=== PATIENT | female | born 1960 | race Caucasian/White ===

== ENCOUNTER 2024-06-04 12:00 | Inpatient (IN) | payer OTHER ==
[~2024-06-04] VITALS: Ht 162.6 cm; Wt 63.5 kg
[2024-06-04] MEDS: ALBUTEROL SULFATE 2.5 MG/3 ML NEBU NEB ONE (12:21)
[2024-06-04] MEDS: IPRATROPIUM BROMIDE 0.5 MG/2.5 ML NEBU NEB ONE (12:21)
[2024-06-04] MEDS ORDERED: IPRATROPIUM BROMIDE 0.5 MG/2.5 ML NEBU ONE (12:25)
[2024-06-04] MEDS ORDERED: ALBUTEROL SULFATE 2.5 MG/3 ML NEBU ONE (12:25)
[2024-06-04 12:38] LABS: BASOPHILS % (AUTO) 0.1 % (0.0-2.0); EOSINOPHILS % (AUTO) 0.1 % (0.0-7.0); HEMATOCRIT 33.1 % (31.2-41.9); HEMOGLOBIN 11.4 g/dL (10.9-14.3); LYMPHOCYTES # (AUTO) 1.5 K/uL (0.8-4.8); MEAN CORPUSCULAR HEMOGLOBIN 32.3 uug (24.7-32.8); MEAN CORPUSCULAR HGB CONC 34 g/dL (32.3-35.6); MEAN CORPUSCULAR VOLUME 93.9 fL (75.5-95.3); MONOCYTES # (AUTO) 0.5 K/uL (0.1-1.30); MONOCYTES % (AUTO) 5.1 % (0.0-11.0); NEUTROPHILS # (AUTO) 7.1 K/uL (1.8-8.9); NEUTROPHILS % (AUTO) 77.7 % (38.5-71.5); PLATELET COUNT (AUTO) 204 K/uL (179-408); RED BLOOD CELL COUNT(AUTO) 3.52 MIL/uL (3.63-4.92); RED CELL DISTRIBUTION WIDTH 14.2 % (12.3-17.7); WHITE BLOOD COUNT (AUTO) 9.1 K/uL (3.8-11.8)
[2024-06-04] MEDS: methylPREDNISolone SOD SUCC 125 MG/2 ML VIAL IV ONE (12:47)
[2024-06-04] MEDS ORDERED: methylPREDNISolone SOD SUCC 125 MG/2 ML VIAL ONE (12:48)
[2024-06-04 12:51] LABS: DIFFERENTIAL COMMENT 1
[2024-06-04 12:54] LABS: CALCIUM 8.5 mg/dL (8.5-10.1); CARBON DIOXIDE 24 mmol/L (21-32); CHLORIDE 99 mmol/L (98-107); CREATININE 0.5 mg/dL (0.6-1.3); GLUCOSE 94 mg/dL (74-106); SODIUM SERUM 131 mmol/L (136-145); UREA NITROGEN, BLOOD 12 mg/dL (7-18)
[2024-06-04 12:56] LABS: POTASSIUM 5.2 mmol/L (3.5-5.1)
[2024-06-04 13:08] LABS: ALANINE AMINOTRANSFERASE 29 U/L (14-59); ALBUMIN 2.6 g/dL (3.4-5.0); ALKALINE PHOSPHATASE 53 U/L (50-136); ASPARTATE AMINOTRANSFERASE 51 U/L (15-37); BILIRUBIN,DIRECT 0.1 mg/dL (0.0-0.2); BILIRUBIN,TOTAL 0.6 mg/dL (0.2-1.0); NT-PRO BNP 1483 pg/mL (0-125); TOTAL PROTEIN, SERUM 8.2 g/dL (6.4-8.2)
[2024-06-04] MEDS ORDERED: AZITHROMYCIN 500MG/ D5W 250ML IVPB **ER PYXIS ONLY IV ONE (13:58)
[2024-06-04] MEDS ORDERED: CEFTRIAXONE /D5W 50ML IVPB **ER PYXIS IV ONE (13:58)
[2024-06-04] MEDS: IV NORMAL SALINE 1000 ML BAG IV ONE (14:01)
[2024-06-04] MEDS: CEFTRIAXONE 1 G in IV DEXTROSE 5% 50 ML IV ONE (14:02)
[2024-06-04] MEDS ORDERED: SWABABLE VALVE TRANSFER SET EA MC ONE (14:03)
[2024-06-04] MEDS ORDERED: IOHEXOL 350 100 ML INFUS..BTL ONE (14:03)
[2024-06-04] MEDS ORDERED: IV NORMAL SALINE 250 ML IV ONE (14:03)
[2024-06-04] MEDS ORDERED: ACETAMINOPHEN 325 MG TABLET PO PRN (14:15)
[2024-06-04] MEDS ORDERED: ALBUTEROL SULFATE 8 GM HFA.AER.AD IH PRN (14:15)
[2024-06-04] MEDS ORDERED: ONDANSETRON 4 MG/2 ML VIAL IV PRN (14:15)
[2024-06-04] MEDS: AZITHROMYCIN IV 500 MG in IV DEXTROSE 5% 250 ML IV ONE (15:00)
[2024-06-04] MEDS ORDERED: ALBUTEROL SULFATE 2.5 MG/3 ML NEBU NEB PRN (15:15)
[2024-06-04] MEDS: VANCOMYCIN IV 1,000 MG in IV DEXTROSE 5% 250 ML IV SCH (16:03)
[2024-06-04 16:50] LABS: ABG BASE EXCESS -2.2 mmol/L (-2.0-3.0); ABG HCO3 22.3 mmol/L (21.0-28.0); ABG PCO2 37.4 mmHg (32.0-45.0); ABG PH 7.393 (7.350-7.450); ABG PO2 59.5 mmHg (83.0-108.0); ABG SITE RIGHT RADIAL; ABG TOTAL HEMOGLOBIN 12.1 G/dL (12.0-16.0); AaDO2 90.8 mmHg; COHb 0.7 % (0.5-1.5); O2Hb 88.6 % (94.0-98.0)
[2024-06-04] MEDS: MIDODRINE HCL 5 MG TABLET PO SCH (22:00)
[2024-06-04] MEDS ORDERED: CEFEPIME HCL 1 G VIAL ONE (22:32)
[2024-06-04] MEDS ORDERED: OSELTAMIVIR PHOSPHATE 75 MG CAPSULE ONE (22:32)
[2024-06-04] MEDS ORDERED: HEPARIN SODIUM,PORCINE 5,000 UNITS/ML VIAL ONE (22:32)
[2024-06-04] MEDS ORDERED: MIDODRINE HCL 5 MG TABLET ONE (22:33)
[2024-06-04] MEDS: HEPARIN SODIUM,PORCINE 5,000 UNITS/ML VIAL SQ SCH (22:35)
[2024-06-04] MEDS: OSELTAMIVIR PHOSPHATE 75 MG CAPSULE PO SCH (22:35)
[2024-06-04] MEDS: CEFEPIME HCL 1 G in IV DEXTROSE 5% 50 ML IV SCH (22:52)
[2024-06-05] MEDS ORDERED: CEFEPIME HCL 1 G VIAL ONE ×2 (08:05→22:54)
[2024-06-05 08:18] LABS: HEMATOCRIT 33.7 % (31.2-41.9); HEMOGLOBIN 11.4 g/dL (10.9-14.3); LYMPHOCYTES # (AUTO) 1.1 K/uL (0.8-4.8); LYMPHOCYTES % (AUTO) 16.3 % (20.5-51.5); MEAN CORPUSCULAR HEMOGLOBIN 31.8 uug (24.7-32.8); MEAN CORPUSCULAR HGB CONC 34 g/dL (32.3-35.6); MEAN CORPUSCULAR VOLUME 93.6 fL (75.5-95.3); MONOCYTES # (AUTO) 0.5 K/uL (0.1-1.30); MONOCYTES % (AUTO) 7.8 % (0.0-11.0); NEUTROPHILS # (AUTO) 5.1 K/uL (1.8-8.9); NEUTROPHILS % (AUTO) 75.9 % (38.5-71.5); PLATELET COUNT (AUTO) 214 K/uL (179-408); WHITE BLOOD COUNT (AUTO) 6.7 K/uL (3.8-11.8)
[2024-06-05 08:29] LABS: DIFFERENTIAL COMMENT 1
[2024-06-05 08:40] LABS: ALANINE AMINOTRANSFERASE 32 U/L (14-59); ALBUMIN 2.6 g/dL (3.4-5.0); ALKALINE PHOSPHATASE 58 U/L (50-136); ASPARTATE AMINOTRANSFERASE 25 U/L (15-37); BILIRUBIN,TOTAL 0.5 mg/dL (0.2-1.0); CALCIUM 8.9 mg/dL (8.5-10.1); CARBON DIOXIDE 24 mmol/L (21-32); CHLORIDE 103 mmol/L (98-107); CREATININE 0.4 mg/dL (0.6-1.3); GLUCOSE 153 mg/dL (74-106); PHOSPHOROUS 2.9 mg/dL (2.5-4.9); POTASSIUM 4.3 mmol/L (3.5-5.1); SODIUM SERUM 138 mmol/L (136-145); TOTAL PROTEIN, SERUM 8.2 g/dL (6.4-8.2); UREA NITROGEN, BLOOD 9 mg/dL (7-18)
[2024-06-05] MEDS ORDERED: OSELTAMIVIR PHOSPHATE 75 MG CAPSULE ONE ×2 (08:59→22:53)
[2024-06-05] MEDS ORDERED: HEPARIN SODIUM,PORCINE 5,000 UNITS/ML VIAL ONE (09:00)
[2024-06-05] MEDS: FLUTICASONE/VILANTEROL 1 EACH BLST.W.DEV INH SCH (09:04)
[2024-06-05 09:05] VITALS: O2SAT 96
[2024-06-05] MEDS ORDERED: TRAZ-182 PO (09:23)
[2024-06-05] MEDS ORDERED: ESCI10TA PO (09:23)
[2024-06-05] MEDS ORDERED: ALPR0.5T8 PO (09:23)
[2024-06-05 09:24] LABS: ABG BASE EXCESS -2.2 mmol/L (-2.0-3.0); ABG HCO3 21.4 mmol/L (21.0-28.0); ABG PO2 89.1 mmHg (83.0-108.0); ABG SITE LEFT RADIAL; ABG TOTAL HEMOGLOBIN 12.2 G/dL (12.0-16.0); AaDO2 97.1 mmHg; COHb 0.3 % (0.5-1.5); MetHb 0.3 % (0.0-1.5); O2Hb 95.8 % (94.0-98.0)
[2024-06-05] MEDS ORDERED: PREG100C PO (09:25)
[2024-06-05] MEDS ORDERED: HYDR-3980 PO (09:25)
[2024-06-05] MEDS ORDERED: BACL20TA PO (09:25)
[2024-06-05] MEDS ORDERED: MIDO10TA PO (09:26)
[2024-06-05] MEDS ORDERED: methylPREDNISolone SOD SUCC 40 MG/ML VIAL ONE (13:52)
[2024-06-05] MEDS ORDERED: BACLOFEN 10 MG TABLET ONE (13:53)
[2024-06-05] MEDS ORDERED: MIDODRINE HCL 5 MG TABLET ONE (13:53)
[2024-06-05] MEDS ORDERED: PREGABALIN 100 MG CAPSULE ONE ×2 (13:54→17:02)
[2024-06-05] MEDS: BACLOFEN 20 MG TABLET PO SCH (13:56)
[2024-06-05] MEDS: methylPREDNISolone SOD SUCC 125 MG/2 ML VIAL IV SCH (13:56)
[2024-06-05] MEDS: PREGABALIN 100 MG CAPSULE PO SCH (13:56)
[2024-06-05] MEDS ORDERED: IPRATROPIUM BROMIDE 0.5 MG/2.5 ML NEBU ONE ×2 (15:05→19:54)
[2024-06-05] MEDS ORDERED: ALBUTEROL SULFATE 2.5 MG/3 ML NEBU ONE ×2 (15:05→19:54)
[2024-06-05 15:08] VITALS: O2SAT 97
[2024-06-05] MEDS: IPRATROPIUM BROMIDE 0.5 MG/2.5 ML NEBU NEB SCH (15:08)
[2024-06-05] MEDS: ALBUTEROL SULFATE 2.5 MG/3 ML NEBU NEB SCH (15:08)
[2024-06-05 15:23] VITALS: O2SAT 100
[2024-06-05] MEDS: CEFEPIME HCL 1 G in IV DEXTROSE 5% 50 ML IV SCH (16:05)
[2024-06-05] MEDS ORDERED: MIDODRINE HCL 10 MG PO SCH (17:00)
[2024-06-05 19:40] VITALS: O2SAT 95
[2024-06-05 19:51] VITALS: O2SAT 97
[2024-06-05 19:55] VITALS: O2SAT 97
[2024-06-05] MEDS ORDERED: VANCOMYCIN IV 200 ML ONE ×2 (21:38→22:52)
[2024-06-05] MEDS ORDERED: AZITHROMYCIN 500MG/ D5W 250ML IVPB **ER PYXIS ONLY IV ONE (22:53)
[2024-06-05] MEDS: TRAZODONE 50 MG TABLET PO SCH (23:04)
[2024-06-05] MEDS: ALPRAZOLAM 0.5 MG TABLET PO SCH (23:04)
[2024-06-06] VITALS (13 sets, daily range): BP systolic 97–142; BP diastolic 54–85; TEMP 97.6–98.6; O2SAT 91–99
[2024-06-06 07:04] LABS: BASOPHILS % (AUTO) 0.1 % (0.0-2.0); HEMATOCRIT 34.8 % (31.2-41.9); LYMPHOCYTES # (AUTO) 1.1 K/uL (0.8-4.8); LYMPHOCYTES % (AUTO) 13.8 % (20.5-51.5); MEAN CORPUSCULAR HEMOGLOBIN 31.9 uug (24.7-32.8); MEAN CORPUSCULAR HGB CONC 35 g/dL (32.3-35.6); MEAN CORPUSCULAR VOLUME 92.1 fL (75.5-95.3); MONOCYTES # (AUTO) 0.6 K/uL (0.1-1.30); MONOCYTES % (AUTO) 7.2 % (0.0-11.0); NEUTROPHILS # (AUTO) 6.3 K/uL (1.8-8.9); NEUTROPHILS % (AUTO) 78.9 % (38.5-71.5); PLATELET COUNT (AUTO) 255 K/uL (179-408); RED BLOOD CELL COUNT(AUTO) 3.78 MIL/uL (3.63-4.92); RED CELL DISTRIBUTION WIDTH 13.9 % (12.3-17.7); WHITE BLOOD COUNT (AUTO) 7.9 K/uL (3.8-11.8)
[2024-06-06 07:21] LABS: CALCIUM 9.3 mg/dL (8.5-10.1); CARBON DIOXIDE 26 mmol/L (21-32); CHLORIDE 103 mmol/L (98-107); CREATININE 0.4 mg/dL (0.6-1.3); GLUCOSE 171 mg/dL (74-106); MAGNESIUM 2.8 mg/dL (1.8-2.4); PHOSPHOROUS 2.9 mg/dL (2.5-4.9); POTASSIUM 3.9 mmol/L (3.5-5.1); SODIUM SERUM 140 mmol/L (136-145); UREA NITROGEN, BLOOD 9 mg/dL (7-18)
[2024-06-06 07:52] LABS: DIFFERENTIAL COMMENT 1
[2024-06-06 08:19] LABS: ABG BASE EXCESS 1.6 mmol/L (-2.0-3.0); ABG HCO3 24.3 mmol/L (21.0-28.0); ABG PCO2 32.5 mmHg (32.0-45.0); ABG PH 7.492 (7.350-7.450); ABG PO2 74.9 mmHg (83.0-108.0); ABG SITE RIGHT RADIAL; ABG TOTAL HEMOGLOBIN 12.6 G/dL (12.0-16.0); AaDO2 96.1 mmHg; COHb 0.4 % (0.5-1.5); MetHb 0.3 % (0.0-1.5); O2Hb 94.5 % (94.0-98.0)
[2024-06-06] MEDS: ESCITALOPRAM OXALATE 10 MG TABLET PO SCH (09:59)
[2024-06-06] MEDS: ENSURE WITH FIBER 237 ML LIQUID (CHOCOLATE) PO SCH (18:28)
[2024-06-06] MEDS: methylPREDNISolone SOD SUCC 125 MG/2 ML VIAL IV SCH (21:01)
[2024-06-07] VITALS (14 sets, daily range): BP systolic 117–164; BP diastolic 68–91; TEMP 96.7–98.2; O2SAT 90–99
[2024-06-07 06:48] LABS: BASOPHILS % (AUTO) 0.1 % (0.0-2.0); HEMATOCRIT 33.5 % (31.2-41.9); HEMOGLOBIN 11.7 g/dL (10.9-14.3); LYMPHOCYTES # (AUTO) 0.7 K/uL (0.8-4.8); LYMPHOCYTES % (AUTO) 8.4 % (20.5-51.5); MEAN CORPUSCULAR HEMOGLOBIN 32.4 uug (24.7-32.8); MEAN CORPUSCULAR HGB CONC 35 g/dL (32.3-35.6); MEAN CORPUSCULAR VOLUME 92.7 fL (75.5-95.3); MONOCYTES # (AUTO) 0.7 K/uL (0.1-1.30); MONOCYTES % (AUTO) 8.5 % (0.0-11.0); NEUTROPHILS # (AUTO) 7.2 K/uL (1.8-8.9); PLATELET COUNT (AUTO) 285 K/uL (179-408); RED BLOOD CELL COUNT(AUTO) 3.62 MIL/uL (3.63-4.92); WHITE BLOOD COUNT (AUTO) 8.7 K/uL (3.8-11.8)
[2024-06-07 06:51] LABS: DIFFERENTIAL COMMENT 1
[2024-06-07 07:04] LABS: CARBON DIOXIDE 27 mmol/L (21-32); CHLORIDE 103 mmol/L (98-107); CREATININE 0.4 mg/dL (0.6-1.3); GLUCOSE 163 mg/dL (74-106); MAGNESIUM 2.6 mg/dL (1.8-2.4); PHOSPHOROUS 2.8 mg/dL (2.5-4.9); SODIUM SERUM 140 mmol/L (136-145); UREA NITROGEN, BLOOD 11 mg/dL (7-18)
[2024-06-07 07:21] LABS: POTASSIUM 3.5 mmol/L (3.5-5.1)
[2024-06-07 09:39] LABS: ABG BASE EXCESS 0.6 mmol/L (-2.0-3.0); ABG PCO2 34.7 mmHg (32.0-45.0); ABG PH 7.457 (7.350-7.450); ABG PO2 72.2 mmHg (83.0-108.0); ABG SITE LEFT RADIAL; ABG TOTAL HEMOGLOBIN 14.4 G/dL (12.0-16.0); AaDO2 95.4 mmHg; COHb 0.3 % (0.5-1.5); MetHb 0.3 % (0.0-1.5)
[2024-06-07] MEDS: MORPHINE SULFATE 2 MG/1 ML DISP.SYRIN IVP PRN (17:47)
[2024-06-07] MEDS: predniSONE 20 MG TABLET PO SCH (21:10)
[2024-06-08] VITALS (16 sets, daily range): BP systolic 129–165; BP diastolic 73–92; TEMP 97.2–99; O2SAT 94–99
[2024-06-08] MEDS: hydrALAZINE HCL 20 MG/1 ML VIAL IV PRN (00:34)
[2024-06-08 07:24] LABS: HEMATOCRIT 34.4 % (31.2-41.9); HEMOGLOBIN 11.8 g/dL (10.9-14.3); LYMPHOCYTES % (AUTO) 9.6 % (20.5-51.5); MEAN CORPUSCULAR HEMOGLOBIN 31.9 uug (24.7-32.8); MEAN CORPUSCULAR HGB CONC 34 g/dL (32.3-35.6); MEAN CORPUSCULAR VOLUME 92.9 fL (75.5-95.3); MONOCYTES # (AUTO) 0.7 K/uL (0.1-1.30); MONOCYTES % (AUTO) 6.7 % (0.0-11.0); NEUTROPHILS # (AUTO) 8.9 K/uL (1.8-8.9); NEUTROPHILS % (AUTO) 83.7 % (38.5-71.5); PLATELET COUNT (AUTO) 333 K/uL (179-408); RED CELL DISTRIBUTION WIDTH 14.1 % (12.3-17.7); WHITE BLOOD COUNT (AUTO) 10.6 K/uL (3.8-11.8)
[2024-06-08 07:44] LABS: CREATININE 0.5 mg/dL (0.6-1.3); MAGNESIUM 2.4 mg/dL (1.8-2.4); PHOSPHOROUS 3.1 mg/dL (2.5-4.9); POTASSIUM 4.2 mmol/L (3.5-5.1)
[2024-06-08 07:49] LABS: DIFFERENTIAL COMMENT 1
[2024-06-08 09:27] LABS: ABG BASE EXCESS 2.8 mmol/L (-2.0-3.0); ABG HCO3 26.5 mmol/L (21.0-28.0); ABG PCO2 37.7 mmHg (32.0-45.0); ABG PH 7.465 (7.350-7.450); ABG PO2 69.8 mmHg (83.0-108.0); ABG SITE RIGHT RADIAL; ABG TOTAL HEMOGLOBIN 12.6 G/dL (12.0-16.0); COHb 0.2 % (0.5-1.5); MetHb 0.3 % (0.0-1.5); O2Hb 93.4 % (94.0-98.0)
[2024-06-08 12:50] LABS: LYMPHOCYTES % (MANUAL) 10 % (20-40); NEUTROPHILS % (MANUAL) 84 % (42-75)
[2024-06-08 12:51] LABS: MONOCYTES % (MANUAL) 6 % (2-10)
[2024-06-08] MEDS: DOCUSATE SODIUM 100 MG CAPSULE PO SCH (17:10)
[2024-06-09] VITALS (11 sets, daily range): BP systolic 98–159; BP diastolic 60–93; TEMP 98–99.3; O2SAT 91–100
[2024-06-09] MEDS: MIRALAX 17 GM POWD.PACK PO SCH (09:41)
[2024-06-09 09:45] LABS: ABG BASE EXCESS 5.3 mmol/L (-2.0-3.0); ABG HCO3 29.5 mmol/L (21.0-28.0); ABG PCO2 41.4 mmHg (32.0-45.0); ABG PO2 89.2 mmHg (83.0-108.0); ABG SITE LEFT RADIAL; ABG TOTAL HEMOGLOBIN 11.9 G/dL (12.0-16.0); AaDO2 97.2 mmHg; COHb 0.3 % (0.5-1.5); MetHb 0.1 % (0.0-1.5); O2Hb 96.3 % (94.0-98.0)
[2024-06-09] MEDS ORDERED: FLUT1BLS IH (12:04)
[2024-06-09] MEDS ORDERED: ALBU2.5V13 NEB (12:04)
[2024-06-09] MEDS ORDERED: AMOX-430 PO (12:04)
[2024-06-09] MEDS ORDERED: PRED20TA PO (12:04)
== END 2024-06-09 18:00 | disposition home health service (06) | DRG 177 ==
LOC: ER 12:00 → TRANSITION 14:10 → TELE3 06-05 21:26 → TELE-TD3 06-05 22:32 → TELE3 06-06 08:53
PROVIDERS: ADMIT Internal Medicine; ATTEND Internal Medicine
PROC: 5A09357 Assistance with Respiratory Ventilation, Less than 24 Consecutive Hours, Continuous Positive Airway Pressure (ICD-10-PCS; principal; 2024-06-04)
PROC: 05HD33Z Insertion of Infusion Device into Right Cephalic Vein, Percutaneous Approach (ICD-10-PCS; 2024-06-04)
DX: J10.08 Influenza due to other identified influenza virus with other specified pneumonia (principal); G82.52 Quadriplegia, C1-C4 incomplete; J15.69 Pneumonia due to other Gram-negative bacteria; J96.01 Acute respiratory failure with hypoxia; J91.8 Pleural effusion in other conditions classified elsewhere; E87.1 Hypo-osmolality and hyponatremia; T14.90XS Injury, unspecified, sequela; W19.XXXS Unspecified fall, sequela; N31.9 Neuromuscular dysfunction of bladder, unspecified; Z80.0 Family history of malignant neoplasm of digestive organs; I95.89 Other hypotension; J45.909 Unspecified asthma, uncomplicated; G89.4 Chronic pain syndrome; E87.5 Hyperkalemia; K80.20 Calculus of gallbladder without cholecystitis without obstruction; Z87.01 Personal history of pneumonia (recurrent); Z93.50 Unspecified cystostomy status; Z79.899 Other long term (current) drug therapy; Z98.1 Arthrodesis status
CPT/HCPCS: 36415; 36600; 70030-TC; 71045; 71275; 82803; 83605; 83735; 84100; 84484; 85025; 87040; 93307; 94640; 94660; 94664; 94760; A4606; A4663; G0378; J0360; J0456; J0692; J0696; J1644; J2270; J2919; J3370; J3590; J7040; J7050; J7512; Q9967